=== PATIENT | female | born 1985 | race Caucasian/White ===

== ENCOUNTER 2023-02-01 19:13 | Emergency (ER) | payer MEDICAID ==
[~2023-02-01] VITALS: Ht 152.4 cm; Wt 79.2 kg
[~2023-02-01 19:13] MED LIST: PREN-385 PO
[2023-02-01 19:20] VITALS: BP 132/99; PULSE 109; RESP 20; TEMP 98.6; O2SAT 97
--- NOTE | 2023-02-01 20:19 | NUR ---
PT TAKEN TO BED 7
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
--- NOTE | 2023-02-01 21:40 | NUR ---
DR FERGUSON AT BEDSIDE
[2023-02-01 22:18] VITALS: BP 132/99; PULSE 109; RESP 20; TEMP 98.6; O2SAT 97
--- NOTE | 2023-02-01 22:18 | NUR ---
Patient discharged with v/s stable. Written and verbal after care instructions given and explained. Patient verbalized understanding. Ambulatory with steady gait. All questions addressed prior to discharge. Advised to follow up with PMD.
== END 2023-02-01 22:18 | disposition home or self-care (01) ==
LOC: MED 19:13
DX: S01.01XA Laceration without foreign body of scalp, initial encounter (principal); J45.909 Unspecified asthma, uncomplicated; I10 Essential (primary) hypertension; Z79.899 Other long term (current) drug therapy; W20.8XXA Other cause of strike by thrown, projected or falling object, initial encounter; Y93.01 Activity, walking, marching and hiking; Y92.830 Public park as the place of occurrence of the external cause; Y99.8 Other external cause status
CPT/HCPCS: 12001; 99282

== ENCOUNTER 2023-02-11 17:37 | Emergency (ER) | payer MEDICAID ==
[~2023-02-11] VITALS: Ht 157.5 cm; Wt 76.7 kg
[2023-02-11 17:53] VITALS: BP 130/90; PULSE 110; RESP 16; TEMP 98.5; O2SAT 98
== END 2023-02-11 18:14 | disposition home or self-care (01) ==
LOC: MED 17:37
DX: S01.01XD Laceration without foreign body of scalp, subsequent encounter (principal); Z48.02 Encounter for removal of sutures; J45.909 Unspecified asthma, uncomplicated; Z79.899 Other long term (current) drug therapy; X58.XXXD Exposure to other specified factors, subsequent encounter
CPT/HCPCS: 99281